=== PATIENT | female | born 1990 | race Caucasian/White ===

== ENCOUNTER → 2020-07-08 | Outpatient (CLI) | payer BC, OTHER | END | disposition home or self-care (01) | LOC: LABWHC1 09:26 | PROVIDERS: ATTEND Family Medicine | DX: Z20.828 Contact with and (suspected) exposure to other viral communicable diseases (principal) | CPT/HCPCS: U0003; C9803 ==

== ENCOUNTER 2021-06-24 21:30 | Emergency (ER) | payer BC ==
[2021-06-24] MEDS ORDERED: ONDANSETRON 4 MG/2 ML VIAL IVP STA (22:05)
[2021-06-24] MEDS ORDERED: SODIUM CHLORIDE 0.9% 1,000 ML IV STA (22:05)
[2021-06-24] MEDS ORDERED: HYDROmorphone 0.5 MG/0.5 ML SYRINGE IVP STA (22:05)
[2021-06-24] MEDS ORDERED: ACETAMINOPHEN TAB 500 MG TAB PO STA (22:06)
[2021-06-24 22:55] LABS: Basophils # (A) 0.1 k/uL (0-0.2); Basophils % (A) 1 %; Eosinophils # (A) 0.1 k/uL (0-0.7); Eosinophils % (A) 1 %; HCT 43.9 % (34.0-46.0); HGB 14.7 gm/dL (11.4-16.0); Lymphocytes # (A) 1.9 k/uL (1.0-4.8); Lymphocytes % (A) 15 %; MCH 31.9 pg (25.0-35.0); MCHC 33.5 g/dL (31.0-37.0); Mean Platelet Volume 7.5; Monocytes # (A) 0.5 k/uL (0-1.0); Monocytes % (A) 4 %; Neutrophils # (A) 10.1 k/uL (1.3-7.7); Neutrophils % (A) 78 %; Platelet Count 296 k/uL (150-450); RBC 4.61 m/uL (3.80-5.40); WBC 12.9 k/uL (3.8-10.6)
[2021-06-24 23:05] LABS: African American GFR (CKD) >90 (>60 ml/min/1.73 sqM); Amorphous Sediment,Urine Rare /hpf; Anion Gap 10 mmol/L; Appearance,Urine Cloudy (Clear); Bacteria,Urine Rare /hpf; Bilirubin,Urine Negative (Negative); Blood Urea Nitrogen 9 mg/dL (7-17); Blood,Urine Negative (Negative); Calcium 9.5 mg/dL (8.4-10.2); Carbon Dioxide 22 mmol/L (22-30); Chloride 102 mmol/L (98-107); Color,Urine Light Yellow; Glucose 98 mg/dL (74-99); Glucose,Urine (UA) Negative (Negative); Ketones,Urine Negative (Negative); Leukocyte Esterase,Urine Large (Negative); Mucus,Urine Rare /hpf; Nitrite,Urine Negative (Negative); Non-African American GFR(CKD) >90 (>60 ml/min/1.73 sqM); Potassium 4.2 mmol/L (3.5-5.1); Protein,Urine Negative (Negative); RBC,Urine 1 /hpf (0-5); Sodium 134 mmol/L (137-145); Specific Gravity,Urine 1.011 (1.001-1.035); Squamous Epithelial Cell,Urine 6 /hpf (0-4); Urobilinogen,Urine <2.0 mg/dL (<2.0); WBC,Urine 102 /hpf (0-5)
[2021-06-24 23:06] LABS: ALT 44 U/L (4-34); AST 35 U/L (14-36); Albumin 4.3 g/dL (3.5-5.0); Alkaline Phosphatase 95 U/L (38-126); Amylase 42 U/L (30-110); Lipase 59 U/L (23-300); Total Bilirubin 0.4 mg/dL (0.2-1.3); Total Protein 6.9 g/dL (6.3-8.2)
--- NOTE | 2021-06-24 23:28 | CT ---
EXAMINATION TYPE: CT abdomen pelvis w con DATE OF EXAM: 06/24/2021 COMPARISON: None HISTORY: Right lower quadrant abdominal pain and fever. CT DLP: 1099.1 mGycm Automated exposure control for dose reduction was used. CONTRAST: Performed with IV Contrast, patient injected with 100ml mL of Isovue 300. Images obtained from the diaphragm to the floor the pelvis with IV contrast. The lung bases are clear. There is no pleural effusion. Heart size is normal. There is no pericardial effusion. Liver spleen stomach pancreas gallbladder appear normal. The bile ducts are not dilated. There is no adrenal mass. Kidneys show satisfactory contrast opacification. There is some fullness of the right renal pelvis and right ureter compared to the left. I see no definite ureteral calculus. U terus is anteverted. Bladder distends smoothly. There is no inguinal hernia. There is no free fluid i n the pelvis. Delayed images show normal renal excretion. The appendix is posterior and lateral and a ppears normal. There is no mesenteric edema. There is no ascites or free air. There is no bowel obstr uction. The lumbar vertebra have normal alignment. There is no compression fracture. Posterior elements are i ntact. Bony pelvis is intact. IMPRESSION: There is mild enlargement of the right upper collecting system but no definite stone seen. This could relate to recently passed stone or previous obstruction. Normal appendix. Delayed images do not show any sign of renal obstruction.
[2021-06-24] MEDS ORDERED: cefTRIAXone IN SWFI 1,000 MG/10 ML SYRINGE IVP STA (23:32)
--- NOTE | 2021-06-24 23:34 | ED ---
Abdominal Pain HPI - General Chief Complaint: Abdominal Pain Stated Complaint: Stomach Pain Time Seen by Provider: 06/24/21 21:54 Source: patient Mode of arrival: ambulatory Limitations: no limitations - History of Present Illness Initial Comments: 30 year-old female patient presents to the emergency department for evaluation of right lower quadrant abdominal pain with radiation through to the back. Pain started more dull yesterday worsening today. Reports nausea without vomiting. Reports fever today. Denies any hematuria, dysuria, urinary frequency, or urgency. Denies abnormal vaginal bleeding or discharge. States she is not sexually active currently. Reports history of and colostomy with reversal as a child. No other abdominal surgeries. Patient denies any recent rash, cough, shortness of breath, chest pain, diarrhea, constipation, back pain, numbness, tingling, dizziness, weakness, headache, visual changes, or any other complaints. - Related Data Home Medications Medication Instructions Recorded Confirmed Ascorbic Acid [Vitamin C] 1,000 mg PO DAILY 06/24/21 06/24/21 Biotin 10,000 mcg PO DAILY 06/24/21 06/24/21 Phentermine HCl [Adipex-P] 37.5 mg PO DAILY 06/24/21 06/24/21 Turmeric Root Extract [Turmeric] 500 mg PO DAILY 06/24/21 06/24/21 Previous Rx's Medication Instructions Recorded Cephalexin [Keflex] 500 mg PO Q6H #40 cap 06/24/21 Ondansetron [Zofran ODT] 4 mg PO Q8HR PRN #10 tab 06/24/21 Allergies Allergy/AdvReac Type Severity Reaction Status Date / Time adhesive tape Allergy Rash/Hives Verified 06/24/21 23:08 bee venom protein (honey bee) Allergy Swelling Verified 06/24/21 23:08 ketamine Allergy Swelling Verified 06/24/21 23:08 morphine Allergy Swelling Verified 06/24/21 23:08 Review of Systems ROS Statement: Those systems with pertinent positive or pertinent negative responses have been documented in the HPI. ROS Other: All systems not noted in ROS Statement are negative. Past Medical History Additional Past Medical History / Comment(s): hirschsprung disease History of Any Multi-Drug Resistant Organisms: None Reported Past Surgical History: Section Additional Past Surgical History / Comment(s): abdominal surgery Past Psychological History: Anxiety, Depression Smoking Status: Never smoker Past Alcohol Use History: Occasional Past Drug Use History: Marijuana General Exam Limitations: no limitations General appearance: alert, in no apparent distress, other (Physical well- developed, well-nourished adult female patient in no acute distress. Vital signs upon presentation are temperature 103.0F, pulse 121, respirations 20, blood pressure 142/95, pulse ox 98% on room air.) ENT exam: Present: normal exam, normal oropharynx, mucous membranes moist Respiratory exam: Present: normal lung sounds bilaterally. Absent: respiratory distress, wheezes, rales, rhonchi, stridor Cardiovascular Exam: Present: normal rhythm, tachycardia, normal heart sounds. Absent: systolic murmur, diastolic murmur, rubs, gallop, clicks GI/Abdominal exam: Present: soft, tenderness (Right lower quadrant), normal bowel sounds. Absent: distended, guarding, rebound, rigid Back exam: Present: normal inspection, CVA tenderness (R). Absent: CVA tenderness (L) Neurological exam: Present: alert, oriented X3, CN II-XII intact Psychiatric exam: Present: normal affect, normal mood Skin exam: Present: warm, dry, intact, normal color. Absent: rash Course Vital Signs 06/24/21 06/24/21 21:43 23:53 Temperature 103 F H 100.3 F H Pulse Rate 121 H 99 Respiratory 20 18 Rate Blood Pressure 142/95 123/86 O2 Sat by Pulse 98 95 Oximetry Medical Decision Making - Medical Decision Making 30-year-old female patient presents to the emergency department today for evaluation of right lower quadrant pain with fever and nausea. Labs reviewed and did reveal white blood cell count at 12.9. Urinalysis showed large leukocyte esterase with 102 white blood cells, rare bacteria. She is not . CT abdomen and pelvis was obtained and did show fullness to the right renal collecting system which could relate to previously passed stone. Urine is dip positive for infection. She'll be given a dose of Rocephin here in the department. We discharged home with Keflex and Zofran. She is instructed to follow up with primary care physician for recheck in 1-2 days. Return parameters were discussed in detail. She verbalizes understanding and agrees this plan. Case discussed with my attending Dr. Cordova. - Lab Data Result diagrams: 06/24/21 22:25 06/24/21 22:28 Lab Results 06/24/21 06/24/21 06/24/21 Range/Units 22:25 22: 22:28 WBC 12.9 H (3.8-10.6) k/uL RBC 4.61 (3.80-5.40) m/uL Hgb 14.7 (11.4-16.0) gm/dL Hct 43.9 (34.0-46.0) % MCV 95.0 (80.0-100.0) fL MCH 31.9 (25.0-35.0) pg MCHC 33.5 (31.0-37.0) g/dL RDW 14.0 (11.5-15.5) % Plt Count 296 (150-450) k/uL MPV 7.5 Neutrophils % 78 % Lymphocytes % 15 % Monocytes % 4 % Eosinophils % 1 % Basophils % 1 % Neutrophils # 10.1 H (1.3-7.7) k/uL Lymphocytes # 1.9 (1.0-4.8) k/uL Monocytes # 0.5 (0-1.0) k/uL Eosinophils # 0.1 (0-0.7) k/uL Basophils # 0.1 (0-0.2) k/uL Sodium (137-145) mmol/L Potassium (3.5-5.1) mmol/L Chloride (98-107) mmol/L Carbon Dioxide (22-30) mmol/L Anion Gap mmol/L BUN (7-17) mg/dL Creatinine (0.52-1.04) mg/dL Est GFR (CKD-EPI)AfAm (>60 ml/min/1.73 sqM) Est GFR (CKD-EPI)NonAf (>60 ml/min/1.73 sqM) Glucose (74-99) mg/dL Plasma Lactic Acid Dc (0.7-2.0) mmol/L Calcium (8.4-10.2) mg/dL Total Bilirubin (0.2-1.3) mg/dL AST (14-36) U/L ALT (4-34) U/L Alkaline Phosphatase (38-126) U/L Total Protein (6.3-8.2) g/dL Albumin (3.5-5.0) g/dL Amylase (30-110) U/L Lipase (23-300) U/L Urine Color Light Yellow Urine Appearance Cloudy H (Clear) Urine pH 7.0 (5.0-8.0) Ur Specific [place] 1.011 (1.001-1.035) Urine Protein Negative (Negative) Urine Glucose (UA) Negative (Negative) Urine Ketones Negative (Negative) Urine Blood Negative (Negative) Urine Nitrite Negative (Negative) Urine Bilirubin Negative (Negative) Urine Urobilinogen <2.0 (<2.0) mg/dL Ur Leukocyte Esterase Large H (Negative) Urine RBC 1 (0-5) /hpf Urine WBC 102 H (0-5) /hpf Ur Squamous Epith Cells 6 H (0-4) /hpf Amorphous Sediment Rare H (None) /hpf Urine Bacteria Rare H (None) /hpf Urine Mucus Rare H (None) /hpf Urine HCG, Qual Not Detected (Not Detectd) 06/24/21 06/24/21 Range/Units 22:28 22:28 WBC (3.8-10.6) k/uL RBC (3.80-5.40) m/uL Hgb (11.4-16.0) gm/dL Hct (34.0-46.0) % MCV (80.0-100.0) fL MCH (25.0-35.0) pg MCHC (31.0-37.0) g/dL RDW (11.5-15.5) % Plt Count (150-450) k/uL MPV Neutrophils % % Lymphocytes % % Monocytes % % Eosinophils % % Basophils % % Neutrophils # (1.3-7.7) k/uL Lymphocytes # (1.0-4.8) k/uL Monocytes # (0-1.0) k/uL Eosinophils # (0-0.7) k/uL Basophils # (0-0.2) k/uL Sodium 134 L (137-145) mmol/L Potassium 4.2 (3.5-5.1) mmol/L Chloride 102 (98-107) mmol/L Carbon Dioxide 22 (22-30) mmol/L Anion Gap 10 mmol/L BUN 9 (7-17) mg/dL Creatinine 0.55 (0.52-1.04) mg/dL Est GFR (CKD-EPI)AfAm >90 (>60 ml/min/1.73 sqM) Est GFR (CKD-EPI)NonAf >90 (>60 ml/min/1.73 sqM) Glucose 98 (74-99) mg/dL Plasma Lactic Acid Dc 1.0 (0.7-2.0) mmol/L Calcium 9.5 (8.4-10.2) mg/dL Total Bilirubin 0.4 (0.2-1.3) mg/dL AST 35 (14-36) U/L ALT 44 H (4-34) U/L Alkaline Phosphatase 95 (38-126) U/L Total Protein 6.9 (6.3-8.2) g/dL Albumin 4.3 (3.5-5.0) g/dL Amylase 42 (30-110) U/L Lipase 59 (23-300) U/L Urine Color Urine Appearance (Clear) Urine pH (5.0-8.0) Ur Specific [place] (1.001-1.035) Urine Protein (Negative) Urine Glucose (UA) (Negative) Urine Ketones (Negative) Urine Blood (Negative) Urine Nitrite (Negative) Urine Bilirubin (Negative) Urine Urobilinogen (<2.0) mg/dL Ur Leukocyte Esterase (Negative) Urine RBC (0-5) /hpf Urine WBC (0-5) /hpf Ur Squamous Epith Cells (0-4) /hpf Amorphous Sediment (None) /hpf Urine Bacteria (None) /hpf Urine Mucus (None) /hpf Urine HCG, Qual (Not Detectd) - Radiology Data Radiology results: report reviewed, image reviewed CT abdomen and pelvis with contrast is obtained. Report is reviewed in its entirety. Impression by Dr. Berman shows mild enlargement of the right upper collecting system but no definitive stones seen. This could relate to recently passed on her previous obstruction. Normal appendix. Delayed images do not show any sign of renal obstruction. Disposition Clinical Impression: Pyelonephritis Disposition: HOME SELF-CARE Condition: Good Instructions (If sedation given, give patient instructions): Kidney Infection (ED) Additional Instructions: Increase fluids. Rest. Follow up with the primary care physician for recheck in 1-2 days. Return to the emergency department for evaluation for any new, worsening, or concerning symptoms. Prescriptions: Cephalexin [Keflex] 500 mg PO Q6H #40 cap Ondansetron [Zofran ODT] 4 mg PO Q8HR PRN #10 tab PRN Reason: Nausea Is patient prescribed a controlled substance at d/c from ED?: No Referrals: Farhad Osuna III, MD [Primary Care Provider] - 1-2 days Time of Disposition: 23:33
[2021-06-24 23:54] VITALS: BP 123/86; PULSE 99; RESP 18; TEMP 100.3
[2021-06-25] MEDS ORDERED: ACET/COD 300 MG/30 MG STARTER PACK 6 TAB BTL PO STA (01:05)
== END 2021-06-25 01:12 | disposition home or self-care (01) ==
LOC: EC 21:30
DX: N12 Tubulo-interstitial nephritis, not specified as acute or chronic (principal); Z91.09 Other allergy status, other than to drugs and biological substances; Z91.030 Bee allergy status; Z88.5 Allergy status to narcotic agent; Z88.4 Allergy status to anesthetic agent
CPT/HCPCS: 36415; 80053; 82150; 83605; 83690; 85025; 81001; 81025; 87040; 87086; 74177; 96374; 96375; 96361; 99284; J2405; J0696; J1170; Q9967

== ENCOUNTER 2023-12-18 08:11 | Emergency (ER) | payer BC, OTHER ==
[2023-12-18 08:21] VITALS: RESP 18; TEMP 98.9
--- NOTE | 2023-12-18 08:38 | ED ---
General Adult HPI - General Chief complaint: Upper Respiratory Infection Stated complaint: cough,SOB Time Seen by Provider: 12/18/23 08:12 Source: patient Mode of arrival: ambulatory Limitations: no limitations - History of Present Illness Initial comments: Dictation was produced using [employer] dictation software. please excuse any grammatical, word or spelling errors. Chief Complaint: 33-year-old female presents to the emergency department for flulike symptoms for 4 days History of Present Illness: Patient 33-year-old female presents to the ER for cough, flulike symptoms and constitutional symptoms for the last 4 days. Patient states that she has been exposed to a household member that tested positive for both COVID and flu. Patient has no comorbidities. No chest pain. Cough is nonproductive The ROS documented in this emergency department record has been reviewed and confirmed by me. Those systems with pertinent positive or negative responses have been documented in the HPI. All other systems are other negative and/or noncontributory. - Related Data Home Medications Medication Instructions Recorded Confirmed Ascorbic Acid [Vitamin C] 1,000 mg PO DAILY 06/24/21 06/24/21 Biotin [Biotin Disolve] 10,000 mcg PO DAILY 06/24/21 06/24/21 Phentermine HCl [Adipex-P] 37.5 mg PO DAILY 06/24/21 06/24/21 Turmeric Root Extract [Turmeric] 500 mg PO DAILY 06/24/21 06/24/21 Previous Rx's Medication Instructions Recorded Cephalexin [Keflex] 500 mg PO Q6H #40 cap 06/24/21 Ondansetron [Zofran ODT] 4 mg PO Q8HR PRN #10 tab 06/24/21 Allergies Allergy/AdvReac Type Severity Reaction Status Date / Time adhesive tape Allergy Rash/Hives Verified 12/18/23 08:19 bee venom protein (honey bee) Allergy Swelling Verified 12/18/23 08:19 ketamine Allergy Swelling Verified 12/18/23 08:19 morphine Allergy Swelling Verified 12/18/23 08:19 Review of Systems ROS Statement: Those systems with pertinent positive or pertinent negative responses have been documented in the HPI. ROS Other: All systems not noted in ROS Statement are negative. Past Medical History Additional Past Medical History / Comment(s): hirschsprung disease History of Any Multi-Drug Resistant Organisms: None Reported Past Surgical History: Section Additional Past Surgical History / Comment(s): abdominal surgery Past Psychological History: Anxiety, Depression Smoking Status: Never smoker Past Alcohol Use History: Occasional Past Drug Use History: Marijuana General Exam - General Exam Comments Initial Comments: General: Well-appearing, nontoxic, no acute distress. Head: Normocephalic, atraumatic Eyes: PERRLA, EOMI ENT: Airway patent Chest: Nonlabored breathing, lungs clear to auscultation bilaterally Skin: No visual rash, normal skin tone Neuro: Alert and oriented 3 Musculoskeletal: No gross abnormalities Limitations: no limitations Course Vital Signs 12/18/23 08:19 Temperature 98.9 F Pulse Rate 91 Respiratory 18 Rate Blood Pressure 150/84 O2 Sat by Pulse 94 L Oximetry Medical Decision Making - Medical Decision Making Was pt. sent in by a medical professional or institution (, PA, PRESS HELPER, urgent care, hospital, or jail...) When possible be specific @ -No Did you speak to anyone other than the patient for history (EMS, parent, family, police, friend...)? What history was obtained from this source @ -No Did you review nursing and triage notes (agree or disagree)? Why? @ -I reviewed and agree with nursing and triage notes Were old charts reviewed (outside hosp., previous admission, EMS record, old EKG, old radiological studies, urgent care reports/EKG's, jail records)? Report findings @ -No old charts were reviewed Differential Diagnosis (chest pain, altered mental status, abdominal pain women, abdominal pain men, vaginal bleeding, musculoskeletal, weakness, fever, dyspnea, syncope, headache, dizziness, GI bleed, back pain, seizure, CVA, palpatations, mental health)? @ -Not applicable EKG interpreted by me (3pts min.). @ -None done X-rays interpreted by me (1pt min.). @ -None done CT interpreted by me (1pt min.). @ -None done U/S interpreted by me (1pt. min.). @ -None done What testing was considered but not performed or refused? (CT, X-rays, U/S, labs)? Why? @ -None What meds were considered but not given or refused? Why? @ -None Did you discuss the management of the patient with other professionals (professionals i.e. , PA, PRESS HELPER, lab, RT, psych nurse, director of social media marketing, material checker, teacher, correction officer, transplant case manager)? Give summary @ -No Was smoking cessation discussed for >3mins.? @ -No Was critical care preformed (if so, how long)? @ -No Were there social determinants of health that impacted care today? How? (Homelessness, low income, unemployed, alcoholism, drug addiction, transportation, low edu. Level, literacy, decrease access to med. care, correction, rehab)? @ -No Was there de-escalation of care discussed even if they declined (Discuss DNR or withdrawal of care, Hospice)? DNR status @ -No What co-morbidities impacted this encounter? (DM, HTN, Smoking, COPD, CAD, Cancer, CVA, ARF, Chemo, Hep., AIDS, mental health diagnosis, sleep apnea, morbid obesity)? @ -None Was patient admitted / discharged? Hospital course, mention meds given and route, prescriptions, significant lab abnormalities, going to OR and other pertinent info. @ -33-year-old female presents to the emergency department with 3 to 4 days of flulike symptoms. Vital signs unremarkable. Patient denies any comorbidities. X-ray unremarkable. Patient influenza A positive. Patient outside the window for Tamiflu. Patient discharged Undiagnosed new problem with uncertain prognosis? @ -No Drug Therapy requiring intensive monitoring for toxicity (Heparin, Nitro, Insulin, Cardizem)? @ -No Were any procedures done? @ -No Diagnosis/symptom? Acute, or Chronic, or Acute on Chronic? Uncomplicated (without systemic symptoms) or Complicated (systemic symptoms)? @ -D influenza Side effects of treatment? @ -No Exacerbation, Progression, or Severe Exacerbation? @ -No Poses a threat to life or bodily function? How? (Chest pain, [place], OR, pneumonia, PE, COPD, DKA, ARF, appy, cholecystitis, CVA, Diverticulitis, Homicidal, Suicidal, threat to staff... and all critical care pts) @ -No - Lab Data Lab Results 12/18/23 Range/Units 08:25 Influenza Type A (PCR) Detected A (Not Detectd) Influenza Type B (PCR) Not Detected (Not Detectd) RSV (PCR) Not Detected (Not Detectd) SARS-CoV-2 (PCR) Not Detected (Not Detectd) Disposition Clinical Impression: Influenza Disposition: HOME SELF-CARE Condition: Good Instructions (If sedation given, give patient instructions): Influenza (ED) Is patient prescribed a controlled substance at d/c from ED?: No Referrals: Farhad Osuna III, MD [Primary Care Provider] - 1-2 days Time of Disposition: 09:22
--- NOTE | 2023-12-18 09:15 | XR ---
EXAMINATION TYPE: XR chest 1V portable DATE OF EXAM: 12/18/2023 COMPARISON: NONE HISTORY: Cough TECHNIQUE: Single frontal view of the chest is obtained. FINDINGS: There is no focal air space opacity, pleural effusion, or pneumothorax seen. The cardiac silhouette size is within normal limits. The osseous structures are intact. Soft tissue calcificati on along the upper margin of the right clavicle. IMPRESSION: No acute process.
[2023-12-18 10:02] VITALS: BP 132/78; PULSE 80
== END 2023-12-18 09:36 | disposition home or self-care (01) ==
LOC: EC 08:11
DX: J10.1 Influenza due to other identified influenza virus with other respiratory manifestations (principal); F12.90 Cannabis use, unspecified, uncomplicated; Z86.59 Personal history of other mental and behavioral disorders; Z20.822 Contact with and (suspected) exposure to COVID-19; Z91.030 Bee allergy status; Z88.5 Allergy status to narcotic agent; Z88.8 Allergy status to other drugs, medicaments and biological substances
CPT/HCPCS: 71045; 87636; 99285

== ENCOUNTER 2024-04-23 18:07 | Emergency (ER) | payer OTHER ==
[2024-04-23 18:45] VITALS: RESP 16
--- NOTE | 2024-04-23 19:17 | ED ---
General Adult HPI - General Chief complaint: Animal Bite Stated complaint: cat bite Time Seen by Provider: 04/23/24 18:51 Source: patient, RN notes reviewed Mode of arrival: ambulatory Limitations: no limitations - History of Present Illness Initial comments: 33-year-old female presents to the emergency department for evaluation of cat bite to her left middle finger. Patient states that she was cleaning out her garage when a cat bit her in her finger. She reports that she cleaned the area extensively. She states that the cat is unknown. Patient is up to date on tetanus vaccine. - Related Data Home Medications Medication Instructions Recorded Confirmed Ascorbic Acid [Vitamin C] 1,000 mg PO DAILY 06/24/21 06/24/21 Biotin [Biotin Disolve] 10,000 mcg PO DAILY 06/24/21 06/24/21 Phentermine HCl [Adipex-P] 37.5 mg PO DAILY 06/24/21 06/24/21 Turmeric Root Extract [Turmeric] 500 mg PO DAILY 06/24/21 06/24/21 Previous Rx's Medication Instructions Recorded Cephalexin [Keflex] 500 mg PO Q6H #40 cap 06/24/21 Ondansetron [Zofran ODT] 4 mg PO Q8HR PRN #10 tab 06/24/21 Amoxic-Pot Clav 875-125Mg 1 tab PO Q12HR #20 tab 04/23/24 [Augmentin 875-125] Allergies Allergy/AdvReac Type Severity Reaction Status Date / Time adhesive tape Allergy Rash/Hives Verified 12/18/23 08:19 bee venom protein (honey bee) Allergy Swelling Verified 12/18/23 08:19 ketamine Allergy Swelling Verified 12/18/23 08:19 morphine Allergy Swelling Verified 12/18/23 08:19 Review of Systems ROS Statement: Those systems with pertinent positive or pertinent negative responses have been documented in the HPI. ROS Other: All systems not noted in ROS Statement are negative. Past Medical History Additional Past Medical History / Comment(s): hirschsprung disease History of Any Multi-Drug Resistant Organisms: None Reported Past Surgical History: Section Additional Past Surgical History / Comment(s): abdominal surgery Past Psychological History: Anxiety, Depression Smoking Status: Never smoker Past Alcohol Use History: Occasional Past Drug Use History: Marijuana General Exam Limitations: no limitations General appearance: alert, in no apparent distress Head exam: Present: atraumatic, normocephalic, normal inspection Eye exam: Present: normal appearance, PERRL, EOMI. Absent: scleral icterus, conjunctival injection, periorbital swelling ENT exam: Present: normal exam, mucous membranes moist Neck exam: Present: normal inspection. Absent: tenderness, meningismus, lymphadenopathy Respiratory exam: Present: normal lung sounds bilaterally. Absent: respiratory distress, wheezes, rales, rhonchi, stridor Cardiovascular Exam: Present: regular rate, normal rhythm, normal heart sounds. Absent: systolic murmur, diastolic murmur, rubs, gallop, clicks Extremities exam: Present: full ROM, normal capillary refill. Absent: tenderness, pedal edema, joint swelling, calf tenderness Back exam: Present: normal inspection Neurological exam: Present: alert, oriented X3 Psychiatric exam: Present: normal affect, normal mood Skin exam: Present: warm, dry, normal color, other (puncture wound to left middle finger). Absent: intact Course Vital Signs 04/23/24 04/23/24 18:43 22:06 Temperature 99 F 98.9 F Pulse Rate 99 91 Respiratory 16 16 Rate Blood Pressure 155/96 145/93 O2 Sat by Pulse 98 98 Oximetry Medical Decision Making - Medical Decision Making Was pt. sent in by a medical professional or institution (Dr. PA, TELEMETRY TECHNICIAN, urgent care, hospital, or residential...) When possible be specific @ -No Did you speak to anyone other than the patient for history (EMS, parent, family, police, friend...)? What history was obtained from this source @ -No Did you review nursing and triage notes (agree or disagree)? Why? @ -I reviewed and agree with nursing and triage notes Were old charts reviewed (outside hosp., previous admission, EMS record, old EKG, old radiological studies, urgent care reports/EKG's, residential records)? Report findings @ -No old charts were reviewed Differential Diagnosis (chest pain, altered mental status, abdominal pain women, abdominal pain men, vaginal bleeding, weakness, fever, dyspnea, syncope, headache, dizziness, GI bleed, back pain, seizure, CVA, palpatations, mental health, musculoskeletal)? @ -Cat bite, rabies prophylaxis, cellulitis, this list is not all inclusive EKG interpreted by me (3pts min.). @ -None X-rays interpreted by me (1pt min.). @ -None done CT interpreted by me (1pt min.). @ -None done U/S interpreted by me (1pt. min.). @ -None done What testing was considered but not performed or refused? (CT, X-rays, U/S, labs)? Why? @ -None What meds were considered but not given or refused? Why? @ -None Did you discuss the management of the patient with other professionals (professionals i.e. , PA, TELEMETRY TECHNICIAN, lab, RT, psych nurse, social service manager, drafter cartographic, teacher, field artillery officer, upper caser)? Give summary @ -No Was smoking cessation discussed for >3mins.? @ -No Was critical care preformed (if so, how long)? @ -No Were there social determinants of health that impacted care today? How? (Homelessness, low income, unemployed, alcoholism, drug addiction, transportation, low edu. Level, literacy, decrease access to med. care, residential, rehab)? @ -No Was there de-escalation of care discussed even if they declined (Discuss DNR or withdrawal of care, Hospice)? DNR status @ -No What co-morbidities impacted this encounter? (DM, HTN, Smoking, COPD, CAD, Cancer, CVA, ARF, Chemo, Hep., AIDS, mental health diagnosis, sleep apnea, morbid obesity)? @ -None Was patient admitted / discharged? Hospital course, mention meds given and route, prescriptions, significant lab abnormalities, going to OR and other pertinent info. @ -Discharge. Patient presented to the emergency department for evaluation of cat bite to her finger. Patient states that there is an unknown cat that she is unable to capture. She is concerned for potential rabies. She will be provided rabies immunoglobulin and initial dose of IM rabies vaccine. She was provided a prescription for completion of the series on days 3 7 and 14. She will also be provided prescription for Augmentin. She is understanding and agreeable with discharge plan. Patient stable at time of discharge. Case discussed with Dr. Cordova. Undiagnosed new problem with uncertain prognosis? @ -No Drug Therapy requiring intensive monitoring for toxicity (Heparin, Nitro, Insulin, Cardizem)? @ -No Were any procedures done? @ -No Diagnosis/symptom? @ -Cat bite Acute, or Chronic, or Acute on Chronic? @ -Acute Uncomplicated (without systemic symptoms) or Complicated (systemic symptoms)? @ -Uncomplicated Side effects of treatment? @ -No Exacerbation, Progression, or Severe Exacerbation? @ -No Poses a threat to life or bodily function? How? (Chest pain, [place], [place], pneumonia, PE, COPD, DKA, ARF, appy, cholecystitis, CVA, Diverticulitis, Homicidal, Suicidal, threat to staff... and all critical care pts) @ -No Disposition Clinical Impression: Cat bite Disposition: HOME SELF-CARE Condition: Stable Instructions (If sedation given, give patient instructions): Animal Bite (ED) Additional Instructions: Please keep wound clean and dry. Follow up for rabies vaccine at days 3, 7, 14. Return to the emergency department for new or worsening symptoms. Prescriptions: Amoxic-Pot Clav 875-125Mg [Augmentin 875-125] 1 tab PO Q12HR #20 tab Is patient prescribed a controlled substance at d/c from ED?: No Referrals: Farhad Osuna III, MD [Primary Care Provider] - 1-2 days
[2024-04-23] MEDS: RABIES VACCINE (PCEC) 2.5 UNIT KIT IM ONE (21:18)
[2024-04-23] MEDS: RABIES IMM GLOB 300 UNIT/2 ML VIAL IM ONE (21:27)
[2024-04-23 22:07] VITALS: BP 145/93; PULSE 91; TEMP 98.9
== END 2024-04-23 22:07 | disposition home or self-care (01) ==
LOC: EC 18:07
DX: S61.253A Open bite of left middle finger without damage to nail, initial encounter (principal); Z91.030 Bee allergy status; Z88.5 Allergy status to narcotic agent; Z91.09 Other allergy status, other than to drugs and biological substances; Z88.4 Allergy status to anesthetic agent; Z23 Encounter for immunization; W55.01XA Bitten by cat, initial encounter
CPT/HCPCS: 90377; 90471; 90675; 96372; 99283

== ENCOUNTER → 2024-07-23 | Outpatient (CLI) | payer OTHER ==
--- NOTE | 2024-07-27 08:14 | US ---
EXAMINATION TYPE: US liver DATE OF EXAM: 07/23/2024 COMPARISON: None CLINICAL INDICATION: Female, 33 years old with history of R74.8 Elevated liver enzymes; Abnormal labs x 1 year. TECHNIQUE: Multiple sonographic images of the right upper quadrant are obtained. FINDINGS: EXAM MEASUREMENTS: Liver Length: 18.9 cm Gallbladder Wall: 0.2 cm CBD: 0.4 cm Right Kidney: 12.2 x 4.8 x 4.9 cm Pancreas: Echogenic in appearance. Liver: Enlarged in size. Coarse. Hypoechoic area seen adjacent to GB, focal sparing? = 1.7 x 1.3 c m Gallbladder: No stones or wall thickening Evidence for sonographic Soto's sign: neg CBD: wnl Right Kidney: No hydronephrosis or masses seen IMPRESSION: 1. Hepatomegaly with mild fatty infiltration [facility] Jessica Rivera, Workstation: [facility], 07/27/2024 8:12 AM
== END | disposition home or self-care (01) ==
LOC: RADUSWWP 09:31
PROVIDERS: ATTEND Family Medicine
CPT/HCPCS: 76705

== ENCOUNTER → 2025-01-02 | Outpatient (CLI) | payer OTHER ==
[2025-01-03 08:50] LABS: ALT 53 U/L (8-44); AST 27 U/L (13-35); Albumin 4.5 g/dL (3.8-4.9); Albumin/Globulin Ratio 1.41 Ratio (1.60-3.17); Alkaline Phosphatase 99 U/L (41-126); Blood Urea Nitrogen 14.7 mg/dL (9.0-27.0); Calcium 9.4 mg/dL (8.7-10.3); Carbon Dioxide 21.4 mmol/L (21.6-31.8); Chloride 106 mmol/L (96-109); Globulin 3.2 g/dL (1.6-3.3); Glucose 85 mg/dL (70-110); Potassium 4.2 mmol/L (3.5-5.5); Sodium 138 mmol/L (135-145); T4, Free (Free Thyroxine) 0.88 ng/dL (0.80-1.80); Total Bilirubin 0.3 mg/dL (0.3-1.2); Total Protein 7.7 g/dL (6.2-8.2)
[2025-01-03 09:20] LABS: Basophils # (A) 0.07 X 10*3/uL (0.00-0.10); Basophils % (A) 0.6 %; Eosinophils # (A) 0.13 X 10*3/uL (0.04-0.35); Eosinophils % (A) 1.1 %; HCT 39.9 % (37.2-46.3); HGB 12.8 g/dL (12.0-15.0); Lymphocytes # (A) 2.88 X 10*3/uL (0.90-5.00); Lymphocytes % (A) 24.7 %; MCH 30.4 pg (27.0-32.0); MCHC 32.1 g/dL (32.0-37.0); MCV 94.8 FL (80.0-97.0); Monocytes # (A) 0.54 X 10*3/uL (0.20-1.00); Monocytes % (A) 4.6 %; NRBC Per 100 WBC 0 X 10*3/uL (0.00-0.01); Neutrophils # (A) 7.93 X 10*3/uL (1.80-7.70); Neutrophils % (A) 68.1 %; Platelet Count 372 X 10*3/uL (140-440); RBC 4.21 X 10*6/uL (4.10-5.20); RDW 14.7 % (11.5-14.5); WBC 11.65 X 10*3/uL (4.50-10.00)
== END | disposition home or self-care (01) ==
LOC: LABWHC1 10:28
PROVIDERS: ATTEND Family Medicine
DX: Z13.29 Encounter for screening for other suspected endocrine disorder (principal); R16.0 Hepatomegaly, not elsewhere classified
CPT/HCPCS: 36415; 80053; 82306; 82390; 83036; 84439; 84443; 85025

== ENCOUNTER → 2025-02-18 | Outpatient (CLI) | payer OTHER ==
[2025-02-18 14:13] VITALS: BP 127/88; PULSE 100; RESP 16; TEMP 98.7
--- NOTE | 2025-02-18 14:39 | P.SLEEP ---
History of Present Illness DATE: 02/19/2020 CONSULTATION/NEW PATIENT EVALUATION HISTORY OF PRESENT ILLNESS/SLEEP-WAKE EVALUATION: 54-year-old lady had been e valuated in the sleep center for possible obstructive sleep apnea hypopnea syndrome. SLEEP SCHEDULE: Usually sleep schedule from 9-10 PM until 5:306 AM. FALLING ASLEEP: Sometimes patient has difficulties with falling asleep. DURING SLEEP: Patient sleeps in different positions with loud snoring and witnessed episodes of stop breathing during the sleep. Positive history of awakenings from sleep multiple times including episodes of awakenings with gasping for air. No history of hypnogogical hallucinations, sleep paralysis, or cataplexy. DURING THE DAY/WAKE STATE: In the morning patient wake up tired, falling asleep during the day. Positive history of memory problems, concentration problems, irritability, depression, anxiety.. Motley sleepiness scale is in very high range of 17. Patient may take 1 nap during the day. PAST MEDICAL HISTORY: Hypertension, hypothyroidism, Hirschsprung's disease. PAST SURGICAL HISTORY: Surgical treatment for Hirschsprung's disease, . MEDICATIONS: See below. SOCIAL HISTORY: Please see below. FAMILY HISTORY: See below. REVIEW OF SYSTEMS: Loud snoring, multiple awakenings from sleep, sleepiness during the day. No fevers. No double vision. No recent chest pain. No shortness of breath. No abdominal pain. No bleeding episodes. No blood in urine. No seizure episodes. PHYSICAL EXAMINATION: GENERAL: A pleasant patient without any distress. VITAL SIGNS: Please see below, with 220 pounds, BMI 36.6. HEENT: PERRLA, EOMI. Evaluation of oropharynx showed tongue protrudes midline, low position of soft palate Mallampati 4. NECK: Supple. No JVD. Thyroid is not palpable. 15.5 inches in circumference. LUNGS: Clear to percussion and to auscultation. Good air exchange. No wheezing or rhonchi. HEART: S1, S2 regular. No murmurs, gallops or rubs. ABDOMEN: Soft and nontender. Bowel sounds are present. No organomegaly appreciated. EXTREMITIES: No clubbing or cyanosis. SELENIUM PLANT OPERATOR: Awake, alert, and oriented x3. Cranial nerves 2 to 7 intact. There is no fasciculation or atrophy noted. No focal deficits observed. ASSESSMENT: 1. Loud snoring, witnessed episodes of stop breathing during the sleep, extremely low position of soft palate Mallampati 4, multiple awakenings from sleep. Obstructive sleep apnea hypopnea syndrome. 2. Significant excessive daytime sleepiness with Motley Sleepiness Scale 17 necessity to include narcolepsy in differential diagnosis. 3. Status post surgical treatment for Hirschsprung's disease. 4. Hypothyroidism. 5 hypertension. 6 . Status post . PLAN: 1. Polysomnography for evaluation of patient's breathing during sleep. 2. Following plan after reading sleep study. If sleep study will be negative for obstructive sleep apnea hypopnea syndrome we may consider multiple sleep latency test. 3. Preferable position during sleep on the side. 4. No driving if patient feels any sleepiness. Patient is aware of civil and criminal liability for unsafe driving. 5. Sleep hygiene with regular sleep time for at least 7.5-8 hours. 6. Watching and losing weight. Thank you very much for referring this patient for consultation. Sincerely, Castro Marie MD, PhD, FAASM. Diplomat of [place] [employer], Sleep Medicine Board by [place] [employer] [place] [employer] Twisting Department End Finder [facility] [place] cc: Vinicio Emerson MD Past Medical History Past Medical History: Hypertension Additional Past Medical History / Comment(s): hirschsprung disease, pre diabetic History of Any Multi-Drug Resistant Organisms: None Reported Past Surgical History: Section Additional Past Surgical History / Comment(s): abdominal surgery Past Anesthesia/Blood Transfusion Reactions: No Reported Reaction Past Psychological History: Anxiety, Depression Smoking Status: Current every day smoker Past Alcohol Use History: Occasional Past Drug Use History: Marijuana Medications and Allergies Home Medications Medication Instructions Recorded Confirmed Type Ascorbic Acid [Vitamin C] 1,000 mg PO DAILY 06/24/21 05/08/24 History Biotin [Biotin Disolve] 10,000 mcg PO DAILY 06/24/21 05/08/24 History Cephalexin [Keflex] 500 mg PO Q6H #40 cap 06/24/21 05/08/24 Rx Ondansetron [Zofran ODT] 4 mg PO Q8HR PRN #10 tab 06/24/21 05/08/24 Rx Phentermine HCl [Adipex-P] 37.5 mg PO DAILY 06/24/21 05/08/24 History Turmeric Root Extract [Turmeric] 500 mg PO DAILY 06/24/21 05/08/24 History Amoxic-Pot Clav 875-125Mg 1 tab PO Q12HR #20 tab 04/23/24 05/08/24 Rx [Augmentin 875-125] Levothyroxine Sodium [Synthroid] 75 mcg PO DAILY 02/18/25 02/18/25 History Olmesartan Medoxomil 20 mg PO DAILY 02/18/25 02/18/25 History Olmesartan [Benicar] 5 mg PO DAILY 02/18/25 02/18/25 History Phentermine HCl [Lomaira] 8 mg PO DAILY 02/18/25 02/18/25 History Topiramate 50 mg PO DAILY 02/18/25 02/18/25 History Allergies Allergy/AdvReac Type Severity Reaction Status Date / Time adhesive tape Allergy Rash/Hives Verified 05/08/24 07:27 bee venom protein (honey bee) Allergy Swelling Verified 05/08/24 07:27 ketamine Allergy Swelling Verified 05/08/24 07:27 morphine Allergy Swelling Verified 05/08/24 07:27 Physical Exam Vitals: Vital Signs Temp Pulse Resp BP Pulse Ox 02/18/25 14:11 98.7 F 100 16 127/88 98 Intake and Output 02/17/25 02/18/25 02/18/25 22:59 06:59 14:59 Other: Weight 99.79 kg Sleep Note - Sleep Data ESS Total: 17 - Sleep Note Sleep Note: Temperature: 98.7 F Pulse Rate: 100 Respiratory Rate: 16 Blood Pressure: 127/88 SpO2: 98 Height: 5 ft 5.5 in Weight: 99.79 kg BMI: Neck Circumference: 15.5
== END ==
LOC: 3 N SLEEP 13:30
PROVIDERS: ATTEND Internal Medicine
DX: G47.33 Obstructive sleep apnea (adult) (pediatric) (principal); E03.9 Hypothyroidism, unspecified; I10 Essential (primary) hypertension; Z98.890 Other specified postprocedural states; Z87.738 Personal history of other specified (corrected) congenital malformations of digestive system; Z91.048 Other nonmedicinal substance allergy status; Z91.030 Bee allergy status; Z88.5 Allergy status to narcotic agent; Z88.4 Allergy status to anesthetic agent
CPT/HCPCS: 99211

== ENCOUNTER 2025-04-01 19:49 | Outpatient (CLI) | payer OTHER ==
--- NOTE | 2025-04-08 10:42 | P.PCN ---
Description of Procedure: POLYSOMNOGRAPHY REPORT PROCEDURE(S)/DATE(S): Polysomnography 04/01/2025 CLINICAL: Patient has been seen in the sleep center for evaluation of obstructive sleep apnea-hypopnea syndrome. Please see my consultation. Sleep study has been done for evaluation of patient breathing during the sleep. PROCEDURE: The standard montage for clinical polysomnography included the electroencephalogram, the electrooculogram, the mentalis surface electromyography and Lead II cardiography. The respiratory battery consisted of measurements of nasal/buccal air flow, pressure transducer measurements from nose, thoracic and/or abdominal effort and intercostal surface electromyography. Video monitoring has been done to check for any parasomnia events. Nocturnal oxyhemoglobin saturations were obtained by finger oximetry. Step-nolen titration with positive airway pressure was utilized to control the respiratory events, if necessary. RESULTS: During the diagnostic sleep study sleep efficiency was normal 93.7%. Latency to sleep onset was normal 14.5 min. Sleep architecture showed stage NI was increased to 12.9%, Delta sleep was absent 0%, REM sleep was normal range 21.8%. Respiratory channel showed 2 obstructive apneas, 0 mixed apneas, 0 central apneas, 52 hypopneas with lowest oxygen level 86%. Total apnea hypopnea index was 8.1. Heart rate was in the range between 64 and 77, average 70. EMG showed 0 periodic limb movements per hour. IMPRESSIONS: 1. Obstructive sleep apnea hypopnea syndrome in mild range with symptoms of significant excessive daytime sleepiness [place] Sleepiness Scale is 17-19. 2. No significant periodic limb movements have been documented. Please see other impressions from consultation PLAN: 1. The patient will have AutoPAP treatment for correction of respiratory abnormalities during the sleep. 2. Losing weight program. 3. Sleep hygiene with regular time in bed for at least 7-1/2 hours. 4. No driving if feeling sleepiness. 5. I will see patient follow-up visit to evaluate clinical response on treatment, compliance with treatment and [place] adjustments related to mask fitting pressure and humidification. If patient will continue symptoms of excessive daytime sleepiness we may consider multiple sleep latency test. Thank you very much for allowing me to participate in the management of your patient. Sincerely, Castro Marie MD, PhD, FAASM. Diplomat of [place] [employer], Sleep Medicine Board by [place] [employer] Retinal Surgeon of [facility] [place] cc: Vinicio Emerson MD
== END 2025-04-02 05:45 | disposition home or self-care (01) ==
LOC: 3 N SLEEP 19:49
PROVIDERS: ATTEND Internal Medicine
DX: G47.33 Obstructive sleep apnea (adult) (pediatric) (principal); Z91.048 Other nonmedicinal substance allergy status; Z91.030 Bee allergy status; Z88.5 Allergy status to narcotic agent; Z88.4 Allergy status to anesthetic agent
CPT/HCPCS: 95810